=== PATIENT | female | born 1990 ===

== ENCOUNTER 2017-09-10 12:03 | Emergency (ER) | payer MEDICAID ==
--- NOTE | 2017-09-10 13:04 | ED PDOC ---
HPI: Abdomen Time Seen by Provider: 09/10/17 13:04 Chief Complaint (Nursing): Abdominal Pain Chief Complaint (Provider): Abd pain History Per: Patient History/Exam Limitations: no limitations Onset/Duration Of Symptoms: Days (2 months) Outside of [place] travel?: No Additional Complaint(s): R lower abd pain off and on, 4 episodes in 2 months. No diarrhea, nausea, vomit , weakness, back pain, dysuria. No chest pain, dyspnea. No new food or drinks. No vaginal bleeding. Seen by GI and had a negative endoscopy. Past Medical History Reviewed: Nursing Documentation, Vital Signs Vital Signs: Last Vital Signs Temp 99.7 F H 09/10/17 12:38 Pulse 82 09/10/17 12:38 Resp 18 09/10/17 12:38 BP 112/67 09/10/17 12:38 Pulse Ox 99 09/10/17 15:24 - Medical History PMH: No Chronic Diseases - Surgical History Other surgeries: endoscopy - Family History Family History: States: Unknown Family Hx - Social History Alcohol: None Drugs: Denies - Allergies Allergies/Adverse Reactions: Allergies Allergy/AdvReac Type Severity Reaction Status Date / Time No Known Allergies Allergy Verified 09/10/17 12:38 Review of Systems ROS Statement: Except As Marked, All Systems Reviewed And Found Negative Gastrointestinal: Positive for: Abdominal Pain Physical Exam - Reviewed Nursing Documentation Reviewed: Yes Vital Signs Reviewed: Yes - Physical Exam Appears: Positive for: Non-toxic, No Acute Distress Head Exam: Positive for: ATRAUMATIC, NORMAL INSPECTION, NORMOCEPHALIC Skin: Positive for: Normal Color, Warm, DRY Eye Exam: Positive for: EOMI, Normal appearance, PERRL ENT: Positive for: Normal ENT Inspection Neck: Positive for: Normal, Painless ROM Cardiovascular/Chest: Positive for: Regular Rate, Rhythm Respiratory: Positive for: CNT, Normal Breath Sounds Gastrointestinal/Abdominal: Positive for: Bowel Sounds, Soft, Tenderness (RLQ) Back: Positive for: Normal Inspection. Negative for: L CVA Tenderness, R CVA Tenderness Extremity: Positive for: Normal ROM. Negative for: Tenderness, Pedal Edema Neurologic/Psych: Positive for: Alert, Oriented - Laboratory Results Result Diagrams: 09/10/17 13:33 09/10/17 13:33 Interpretation Of Abn Labs: no acute Urine dip results: Negative for: Leukocyte Esterase, Nitrate - ECG O2 Sat by Pulse Oximetry: 99 Pulse Ox Interpretation: Normal - CT Scan/US US Other Rad Studies (CT/US): Read By Radiologist Other Rad Interpretation: Large complex right ovarian cyst with internal septation, measure up to 4.1 - Progress ED Course And Treament: Large complex right ovarian cyst with internal septation, measuring up to 4.1 centimeter 1500: Will CT for further eval. 1618: Stable. Dr. Marcum to fu on imaging. Disposition - Clinical Impression Clinical Impression: Abdominal pain, Ovarian cyst - Patient ED Disposition Is Patient to be Admitted: Transfer of Care - Disposition Disposition: Transfer of Care Disposition Time: 16:19 Condition: STABLE Forms: [employer] (Gambian) Patient Signed Over To: Enedina Marcum
[2017-09-10] MEDS: Sodium Chloride 0.9% 1,000 ML IV STA (13:30)
[2017-09-10 13:47] LABS: BASO % 0.4 % (0.0-2.0); EOS # 0.1 K/uL (0.0-0.7); EOS % 1.5 % (0.0-4.0); HEMATOCRIT 41.8 % (34.0-47.0); LYMPH # 2.5 K/uL (1.0-4.3); LYMPH % 26.5 % (20.0-40.0); MEAN CELL VOLUME 84.8 fl (81.0-99.0); MEAN CORPUSCULAR HEMOGLOBIN 29.3 pg (27.0-31.0); MEAN CORPUSCULAR HGB CONC 34.6 g/dL (33.0-37.0); MEAN PLATELET VOLUME 9.5 fl (7.2-11.7); MONO # 0.8 K/uL (0.0-0.8); MONO % 8.6 % (0.0-10.0); NEUT # 5.8 K/uL (1.8-7.0); RED CELL DISTRIBUTION WIDTH 13.3 % (11.5-14.5); WHITE BLOOD COUNT 9.3 K/uL (4.8-10.8)
[2017-09-10 14:04] LABS: ALB/GLOB RATIO 1.3 (1.0-2.1); ALKALINE PHOSPHATASE 43 U/L (38-126); ALT/SGPT 48 U/L (9-52); AST/SGOT 25 U/L (14-36); BILIRUBIN,TOTAL 0.7 mg/dl (0.2-1.3); BLOOD UREA NITROGEN 11 mg/dl (7-17); CALCIUM 9.3 mg/dL (8.4-10.2); CARBON DIOXIDE 23 mmol/L (22-30); CHLORIDE 106 mmol/L (98-107); GFR AFRICAN-AMERICAN > 60; GLUCOSE,RANDOM 76 mg/dL (65-105); SODIUM 141 mmol/l (132-148); TOTAL PROTEIN 8.1 G/DL (6.3-8.2)
--- NOTE | 2017-09-10 14:45 | US ---
HISTORY: R pelvic pain COMPARISON: None available. TECHNIQUE: Grayscale, color Doppler and spectral evaluation of the pelvis performed transvaginally. FINDINGS: UTERUS: Measures 7.1 x 5.9 x 5.0 cm. Retroverted. Normal in size and appearance. No fibroid or other mass lesion seen. ENDOMETRIUM: Measures 5 mm in diameter. Unremarkable. CERVIX: No cervical abnormality identified. RIGHT OVARY: Measures 5.4 x 4.6 x 3.1 cm and contains a 4.1 x 3.9 x 2.6 centimeter complex cystic with internal septation. Normal flow. LEFT OVARY: Measures 3.6 x 2.8 x 2.2 cm. No solid mass. Normal flow. FREE FLUID: Free fluid noted in the cul-de-sac. OTHER FINDINGS: None. IMPRESSION: Large complex right ovarian cyst with internal septation, measuring up to 4.1 centimeter. Ultrasound follow-up can be obtained 6-8 weeks to assess for stability/resolution. Normal color Doppler flow to both ovaries.
[2017-09-10] MEDS ORDERED: Iohexol 240 (50 ml) ONE (15:43)
[2017-09-10] MEDS: Iohexol 240 (50 ml) PO ONE (15:51)
[2017-09-10] MEDS ORDERED: Sodium Chloride 0.9% 50 ML IV ONE (17:17)
[2017-09-10] MEDS ORDERED: Iohexol 300 100 ML IJ ONE (17:17)
[2017-09-10 18:39] VITALS: BP 116/48; PULSE 72; RESP 16; TEMP 98.1; O2SAT 100
--- NOTE | 2017-09-10 19:29 | CT ---
EXAM: CT Abdomen and Pelvis With Intravenous Contrast CLINICAL HISTORY: 27 years old, female; Pain; Abdominal pain; Localized; Right lower quadrant (rlq); Additional info: Abd pain. Sent phy. Doc. TECHNIQUE: Axial computed tomography images of the abdomen and pelvis with intravenous contrast. All CT scans at this facility use one or more dose reduction techniques, viz.: automated exposure control; ma/kV adjustment per patient size (including targeted exams where dose is matched to indication; i.e. head); or iterative reconstruction technique. Coronal and sagittal reformatted images were created and reviewed. CONTRAST: 90 mL of [id number] administered intravenously. COMPARISON: No relevant prior studies available. FINDINGS: Lower thorax: Small hiatal hernia. ABDOMEN: Liver: Unremarkable. No mass. Gallbladder and bile ducts: No calcified stones. No ductal dilation. Pancreas: No ductal dilation. No mass. Spleen: No splenomegaly. Adrenals: No mass. Kidneys and ureters: No mass. No hydronephrosis. Stomach and bowel: No definite mural thickening. No obstruction. Appendix: Normal caliber. No inflammation. PELVIS: Bladder: Unremarkable. Reproductive: 3.5 x 3.7 x 3.5 cm peripherally enhancing hypodensity with slightly crenulated margins within RIGHT ovary. ABDOMEN and PELVIS: Intraperitoneal space: Small, slightly hyperdense free fluid within pelvis. No free air. Bones/joints: No acute fracture. Soft tissues: Unremarkable. Vasculature: Unremarkable. No aneurysm. Lymph nodes: No pathologically enlarged lymph nodes. IMPRESSION: 1. Involuting or ruptured RIGHT ovarian cyst. 2. Incidental/non-acute findings are described above.
--- NOTE | 2017-09-10 19:35 | ED PDOC ---
- Laboratory Results Result Diagrams: 09/10/17 13:33 09/10/17 13:33 - ECG O2 Sat by Pulse Oximetry: 100 - Progress ED Course And Treament: 5p Rec'd endorsement from Dr Vasquez. Pt with abd pain pending CT. US performed already demonstrated ovarian cyst. Accession No. : [id number] Patient Name / ID : KEV URBAN / [id number] Exam Date : 09/10/2017 17:27:10 ( Approved ) Study Comment : Sex / Age : F / 27Y Creator : Kenton Tatum MD Dictator : Oral Surgery Physician : Osteopathic Neurologist : Kenton Tatum MD Approver2 : Report Date : 09/10/2017 19:29:00 My Comment : [facility] Division of Radiology [address] [place] [address] Tel. no. Patient Name: RAJNI ANGULO Pt. Address: [address] [place] [address] Rec #: [id number] [place] [address]: Pedro BAKER,Teofilo Rodriguez Pt Order Location: [facility] : 1990 Female Age: 27 Order #: [id number] Reason for exam: abd pain CT Scan ABD PELVIS PO IV CONTRAST Exam Date: 09/10/17 This imaging exam was performed at [facility] EXAM: CT Abdomen and Pelvis With Intravenous Contrast CLINICAL HISTORY: 27 years old, female; Pain; Abdominal pain; Localized; Right lower quadrant (rlq); Additional info: Abd pain. Sent phy. Doc. TECHNIQUE: Axial computed tomography images of the abdomen and pelvis with intravenous contrast. All CT scans at this facility use one or more dose reduction techniques, viz.: automated exposure control; ma/kV adjustment per patient size (including targeted exams where dose is matched to indication; i.e. head); or iterative reconstruction technique. Coronal and sagittal reformatted images were created and reviewed. CONTRAST: 90 mL of [id number] administered intravenously. COMPARISON: No relevant prior studies available. FINDINGS: Lower thorax: Small hiatal hernia. ABDOMEN: Liver: Unremarkable. No mass. Gallbladder and bile ducts: No calcified stones. No ductal dilation. Pancreas: No ductal dilation. No mass. Spleen: No splenomegaly. Adrenals: No mass. Kidneys and ureters: No mass. No hydronephrosis. Stomach and bowel: No definite mural thickening. No obstruction. Appendix: Normal caliber. No inflammation. PELVIS: Bladder: Unremarkable. Reproductive: 3.5 x 3.7 x 3.5 cm peripherally enhancing hypodensity with slightly crenulated margins within RIGHT ovary. ABDOMEN and PELVIS: Intraperitoneal space: Small, slightly hyperdense free fluid within pelvis. No free air. Bones/joints: No acute fracture. Soft tissues: Unremarkable. Vasculature: Unremarkable. No aneurysm. Lymph nodes: No pathologically enlarged lymph nodes. IMPRESSION: 1. Involuting or ruptured RIGHT ovarian cyst. 2. Incidental/non-acute findings are described above. Dictated By: Kenton Tatum MD Dictated Date/Time: 09/10/171928 Signed By: Kenton Tatum MD Date Signed: 1928 Transcribed By: BHANU Transcribe Date/Time : 09/10/171928 [id number] DW pt findings. On arrival to room, pt lying in bed comfortably. Disposition Counseled Patient/Family Regarding: Studies Performed, Diagnosis, Need For Followup, Rx Given - Clinical Impression Clinical Impression: Abdominal pain, Ruptured ovarian cyst - POA Present On Arrival: None - Disposition Referrals: [facility] [Outside] - 09/16/17 (PLEASE FOLLOW UP WITH A [facility] P[facility]ER WITHIN A WEEK FOR REEVALUATION) Disposition: Routine/Home Disposition Time: 19:30 Condition: STABLE Prescriptions: Naproxen [Naprosyn] 1 tab PO BID PRN #30 tab PRN Reason: Pain traMADol [Ultram] 50 mg PO TID PRN #15 tab PRN Reason: SEVERE PAIN ONLY Instructions: Ovarian Cyst (ED) Forms: [facility] ED School/Work Excuse
== END 2017-09-10 20:05 | disposition home or self-care (01) ==
LOC: H.ER 12:03
DX: N83.201 Unspecified ovarian cyst, right side (principal)
CPT/HCPCS: 74177; 76830; 80053; 81025; 85025; 96361; 96374; 96375; 99283; J1885; J2405; J7040; Q9966; Q9967